=== PATIENT | male | born 1965 | race Caucasian/White ===

== ENCOUNTER 2018-06-09 11:19 | Emergency (ER) | payer SELFPAY ==
[~2018-06-09] VITALS: Ht 172.7 cm; Wt 85.5 kg
[2018-06-09 11:22] VITALS: TEMP 98.5
[2018-06-09 11:57] LABS: BASO # 0.1 (0.0-0.2); BASO % 0.8 % (0.0-2.0); EOS # 0.1 (0.0-0.7); GRAN # 7.4 (1.4-6.5); GRAN % 63.5 % (42.2-75.2); HEMATOCRIT 46.4 % (42.0-52.0); LYMPH # 3.2 (1.2-3.4); LYMPH % 27.1 % (20.0-51.0); MEAN CELL VOLUME 97 fl (80.0-100.0); MEAN CORPUSCULAR HEMOGLOBIN 34 pg (27.0-31.0); MEAN CORPUSCULAR HGB CONC 35 g/dl (33.0-37.0); MEAN PLATELET VOLUME 9.5 fl (7.4-10.4); MONO # 0.9 (0.1-0.6); MONO % 7.3 % (1.7-9.3); PLATELET COUNT 254 K/mm3 (130-400); RED BLOOD COUNT 4.77 M/mm3 (4.20-5.60); REDCELL DISTRIBUTION WIDTH-CV 13.3 % (11.5-14.5)
[2018-06-09 12:14] LABS: ALANINE AMINOTRANSFERASE 34 U/L (21-72); ALBUMIN 4.1 gm/dL (3.5-5.0); ALKALINE PHOSPHATASE 113 U/L (50-136); ANION GAP 13 mmol/L (7-16); AST,SGOT 31 U/L (15-37); BILIRUBIN,TOTAL 0.6 mg/dL (0.0-1.0); BLOOD UREA NITROGEN 15 mg/dL (9-20); CALCIUM 9.2 mg/dL (8.4-10.2); CARBON DIOXIDE 21 mmol/L (22-30); CHLORIDE 105 mmol/L (98-107); CREATININE, serum 0.92 mg/dL (0.66-1.25); GLUCOSE 106 mg/dL (74-106); POTASSIUM 3.9 mmol/L (3.4-5.0); SODIUM 139 mmol/L (137-145); TOTAL PROTEIN 7.3 gm/dL (6.4-8.2)
[2018-06-09 12:26] LABS: TROPONIN-I < 0.012 ng/mL (0.000-0.034)
[2018-06-09 13:03] LABS: COLLECTION METHOD CLEAN CATCH
[2018-06-09 13:12] LABS: MUCOUS Present /lpf; PH 5 (5-8); SQUAMOUS EPITHELIAL 0-2 /hpf; URINE APPEARANCE Clear; URINE BACTERIA None Seen /hpf; URINE BILIRUBIN Negative (NEGATIVE); URINE BLOOD Negative (NEGATIVE); URINE COLOR Yellow; URINE GLUCOSE Negative (NEGATIVE); URINE KETONE Negative (NEGATIVE); URINE LEUKOCYTE ESTERASE Negative (NEGATIVE); URINE NITRATE Negative (NEGATIVE); URINE PROTEIN(semi-quant) Negative (NEGATIVE); URINE RBC 0-2 /hpf; URINE UROBILINOGEN Negative (NEGATIVE)
[2018-06-09] MEDS ORDERED: PRINIVIL10 MG PO (13:15)
[2018-06-09 13:20] VITALS: BP 130/96; PULSE 76
== END 2018-06-09 13:29 | disposition home or self-care (01) ==
LOC: COL.ER 11:19
PROVIDERS: Nurse Practitioner
DX: I10 Essential (primary) hypertension (principal); Z91.14 Patient's other noncompliance with medication regimen; Z98.890 Other specified postprocedural states

== ENCOUNTER → 2019-04-07 | Outpatient (CLI) | payer BC ==
[~2019-04-07] MED LIST: PRINIVIL10 MG PO
[2019-04-07 11:33] LABS: BASO # 0.1 (0.0-0.2); BASO % 1.1 % (0.0-2.0); EOS # 0.3 (0.0-0.7); EOS % 2.2 % (0-4.0); GRAN # 6.7 (1.4-6.5); HEMATOCRIT 49.1 % (42.0-52.0); LYMPH # 3.5 (1.2-3.4); LYMPH % 30.5 % (20.0-51.0); MEAN CELL VOLUME 98 fl (80.0-100.0); MEAN CORPUSCULAR HEMOGLOBIN 34 pg (27.0-31.0); MEAN CORPUSCULAR HGB CONC 35 g/dl (33.0-37.0); MEAN PLATELET VOLUME 8.9 fl (7.4-10.4); MONO # 0.8 (0.1-0.6); MONO % 6.8 % (1.7-9.3); PLATELET COUNT 229 K/mm3 (130-400); RED BLOOD COUNT 5.03 M/mm3 (4.20-5.60); REDCELL DISTRIBUTION WIDTH-CV 12.8 % (11.5-14.5)
[2019-04-07 11:44] LABS: CALCIUM 9.5 mg/dL (8.4-10.2); CREATININE, serum 0.8 (0.66-1.25); POTASSIUM 4.6 mmol/L (3.4-5.0)
[2019-04-07 13:22] LABS: TSH w REFLEX 2.55 uIU/mL (0.465-4.680)
== END ==
LOC: COL.RAD 10:37
PROVIDERS: Family Medicine
DX: M19.012 Primary osteoarthritis, left shoulder (principal); I10 Essential (primary) hypertension; R53.83 Other fatigue

== ENCOUNTER 2019-04-13 09:49 | Emergency (ER) | payer BC ==
[~2019-04-13] VITALS: Ht 172.7 cm; Wt 87.3 kg
[2019-04-13] MEDS ORDERED: LASIX 20MG TABL20 MG (10:02)
[2019-04-13 10:12] LABS: BASO # 0.1 (0.0-0.2); BASO % 0.7 % (0.0-2.0); EOS # 0.2 (0.0-0.7); EOS % 1.2 % (0-4.0); GRAN % 63.3 % (42.2-75.2); HEMATOCRIT 49.3 % (42.0-52.0); HEMOGLOBIN 17.1 g/dl (13.5-18.0); LYMPH # 3.2 (1.2-3.4); LYMPH % 25.3 % (20.0-51.0); MEAN CELL VOLUME 98 fl (80.0-100.0); MEAN CORPUSCULAR HEMOGLOBIN 34 pg (27.0-31.0); MEAN CORPUSCULAR HGB CONC 35 g/dl (33.0-37.0); MEAN PLATELET VOLUME 8.8 fl (7.4-10.4); MONO # 1.1 (0.1-0.6); MONO % 8.6 % (1.7-9.3); PLATELET COUNT 258 K/mm3 (130-400); RED BLOOD COUNT 5.05 M/mm3 (4.20-5.60); REDCELL DISTRIBUTION WIDTH-CV 12.7 % (11.5-14.5)
[2019-04-13 10:21] LABS: ALANINE AMINOTRANSFERASE 16 U/L (21-72); ALBUMIN 4.6 gm/dL (3.5-5.0); ALKALINE PHOSPHATASE 106 U/L (50-136); ANION GAP 15 mmol/L (7-16); AST,SGOT 34 U/L (15-37); BILIRUBIN,TOTAL 0.5 mg/dL (0.0-1.0); BLOOD UREA NITROGEN 22 mg/dL (9-20); CALCIUM 9.8 mg/dL (8.4-10.2); CARBON DIOXIDE 22 mmol/L (22-30); CHLORIDE 103 mmol/L (98-107); CREATININE, serum 0.98 (0.66-1.25); GLUCOSE 105 mg/dL (74-106); LIPASE 203 U/L (23-300); POTASSIUM 5.2 mmol/L (3.4-5.0); SODIUM 140 mmol/L (137-145); TOTAL PROTEIN 7.9 gm/dL (6.4-8.2)
[2019-04-13 10:34] LABS: TROPONIN-I < 0.012 ng/mL (0.000-0.035)
[2019-04-13 14:16] VITALS: BP 130/74; PULSE 70; TEMP 98.4
== END 2019-04-13 14:25 | disposition home or self-care (01) ==
LOC: COL.ER 09:49
PROVIDERS: Nurse Practitioner Primary Care
DX: R07.9 Chest pain, unspecified (principal); I10 Essential (primary) hypertension; F17.210 Nicotine dependence, cigarettes, uncomplicated; Z90.49 Acquired absence of other specified parts of digestive tract
CPT/HCPCS: J7030

== ENCOUNTER → 2019-05-26 | Emergency (ER) | payer BC ==
[~2019-05-26] VITALS: Ht 188 cm; Wt 104.5 kg
[~2019-05-26] MED LIST changes: +LASIX 20MG TABL20 MG
[2019-05-26 19:05] VITALS: TEMP 97.5
[2019-05-26 19:16] LABS: ARTERIAL BLD GAS O2 SATURATION 99.1 % (92-100); ARTERIAL BLD GAS TCO2 CT 15.5; ARTERIAL BLOOD GAS BASE EXCESS -9.2 (-2-2); ARTERIAL BLOOD GAS HCO3 14.7 meq/L (22-26); ARTERIAL BLOOD GAS PCO2 27.5 mmHg (35-45); ARTERIAL BLOOD GAS PO2 412.4 mmHg (80-100); ARTERIAL BLOOD GAS pH 7.35 (7.35-7.45)
[2019-05-26 19:20] LABS: BASO # 0.1 (0.0-0.2); BASO % 0.9 % (0.0-2.0); EOS # 0.2 (0.0-0.7); EOS % 1.6 % (0-4.0); GRAN # 8.1 (1.4-6.5); GRAN % 57.1 % (42.2-75.2); HEMATOCRIT 45.3 % (42.0-52.0); HEMOGLOBIN 15.5 g/dl (13.5-18.0); LYMPH # 4.7 (1.2-3.4); MEAN CELL VOLUME 99 fl (80.0-100.0); MEAN CORPUSCULAR HEMOGLOBIN 34 pg (27.0-31.0); MEAN CORPUSCULAR HGB CONC 34 g/dl (33.0-37.0); MEAN PLATELET VOLUME 9.2 fl (7.4-10.4); MONO # 0.9 (0.1-0.6); MONO % 6.5 % (1.7-9.3); PLATELET COUNT 254 K/mm3 (130-400)
[2019-05-26 19:29] LABS: INR 0.9 (0.8-3.0); PROTHROMBIN TIME 10.5 SECONDS (9.7-12.8)
[2019-05-26 19:31] LABS: ALANINE AMINOTRANSFERASE 43 U/L (21-72); ALBUMIN 4.5 gm/dL (3.5-5.0); ALKALINE PHOSPHATASE 105 U/L (50-136); ANION GAP 19 mmol/L (7-16); AST,SGOT 65 U/L (15-37); BILIRUBIN,TOTAL 0.8 mg/dL (0.0-1.0); BLOOD UREA NITROGEN 22 mg/dL (9-20); CALCIUM 9.4 mg/dL (8.4-10.2); CARBON DIOXIDE 15 mmol/L (22-30); CHLORIDE 103 mmol/L (98-107); CREATININE, serum 1.65 (0.66-1.25); GLUCOSE 318 mg/dL (74-106); POTASSIUM 3.4 mmol/L (3.4-5.0); SODIUM 137 mmol/L (137-145); TOTAL PROTEIN 7.4 gm/dL (6.4-8.2)
[2019-05-26 19:44] LABS: TROPONIN-I < 0.012 ng/mL (0.000-0.035)
--- NOTE | 2019-05-26 19:53 | NUR ---
Received a call from ER there was a code red and the family requested a chapalin. I arrived and the family was getting ready to leave for [place] to meet the patient who was being moved to [place]. I prayed with the and family and provided spiritual care.
[2019-05-26 20:10] VITALS: BP 212/165; PULSE 144
[2019-05-26 20:25] LABS: COLLECTION METHOD CLEAN CATCH
[2019-05-26 20:42] LABS: HYALINE CAST >12 /lpf; MUCOUS Present /lpf; PH 5 (5-8); URINE APPEARANCE Cloudy; URINE BACTERIA Rare /hpf; URINE BILIRUBIN Negative (NEGATIVE); URINE BLOOD 2+ (NEGATIVE); URINE COLOR Amber; URINE GLUCOSE 3+ (NEGATIVE); URINE KETONE Trace (NEGATIVE); URINE LEUKOCYTE ESTERASE Negative (NEGATIVE); URINE NITRATE Negative (NEGATIVE); URINE PROTEIN(semi-quant) 2+ (NEGATIVE); URINE RBC 20-50 /hpf; URINE UROBILINOGEN Negative (NEGATIVE)
== END ==
LOC: COL.ER 19:01
PROVIDERS: Emergency Medicine
DX: I46.9 Cardiac arrest, cause unspecified (principal); I21.4 Non-ST elevation (NSTEMI) myocardial infarction
CPT/HCPCS: J0282; J1644; J2704; J7060

== ENCOUNTER 2019-07-28 08:18 | Emergency (ER) | payer BC ==
[~2019-07-28] VITALS: Ht 172.7 cm; Wt 85.5 kg
[2019-07-28 09:09] LABS: BASO # 0.1 (0.0-0.2); BASO % 1.4 % (0.0-2.0); EOS # 0.2 (0.0-0.7); EOS % 2.6 % (0-4.0); GRAN # 4.2 (1.4-6.5); GRAN % 53.1 % (42.2-75.2); HEMATOCRIT 42.8 % (42.0-52.0); HEMOGLOBIN 14.5 g/dl (13.5-18.0); LYMPH # 2.9 (1.2-3.4); LYMPH % 35.9 % (20.0-51.0); MEAN CELL VOLUME 99 fl (80.0-100.0); MEAN CORPUSCULAR HEMOGLOBIN 34 pg (27.0-31.0); MEAN CORPUSCULAR HGB CONC 34 g/dl (33.0-37.0); MEAN PLATELET VOLUME 9.3 fl (7.4-10.4); MONO # 0.5 (0.1-0.6); MONO % 6.4 % (1.7-9.3); PLATELET COUNT 279 K/mm3 (130-400); RED BLOOD COUNT 4.32 M/mm3 (4.20-5.60); REDCELL DISTRIBUTION WIDTH-CV 15.2 % (11.5-14.5)
[2019-07-28 09:24] LABS: ALANINE AMINOTRANSFERASE 31 U/L (21-72); ALBUMIN 4.7 gm/dL (3.5-5.0); ALKALINE PHOSPHATASE 107 U/L (50-136); ANION GAP 11 mmol/L (7-16); AST,SGOT 38 U/L (15-37); BILIRUBIN,TOTAL 0.5 mg/dL (0.0-1.0); BLOOD UREA NITROGEN 17 mg/dL (9-20); CALCIUM 9.6 mg/dL (8.4-10.2); CARBON DIOXIDE 22 mmol/L (22-30); CHLORIDE 107 mmol/L (98-107); CREATININE, serum 0.68 (0.66-1.25); GLUCOSE 108 mg/dL (74-106); LIPASE 99 U/L (23-300); POTASSIUM 4.1 mmol/L (3.4-5.0); SODIUM 140 mmol/L (137-145)
[2019-07-28 09:30] LABS: ALCOHOL(ethanol),MEDICAL < 10 mg/dL; C-REACTIVE PROTEIN < 0.5 mg/dL (0.0-0.9)
[2019-07-28 09:41] LABS: TROPONIN-I < 0.012 ng/mL (0.000-0.035)
[2019-07-28] MEDS ORDERED: NEXIUM 20MG20 MG PO (10:51)
[2019-07-28] MEDS ORDERED: PHENERGAN 25 TA25 MG PO (10:51)
[2019-07-28 10:59] LABS: COLLECTION METHOD CLEAN CATCH
[2019-07-28 11:06] LABS: PH 7 (5-8); SQUAMOUS EPITHELIAL None Seen /hpf; URINE APPEARANCE Clear; URINE BACTERIA None Seen /hpf; URINE BILIRUBIN Negative (NEGATIVE); URINE BLOOD Negative (NEGATIVE); URINE COLOR Yellow; URINE GLUCOSE Negative (NEGATIVE); URINE KETONE Negative (NEGATIVE); URINE LEUKOCYTE ESTERASE Negative (NEGATIVE); URINE NITRATE Negative (NEGATIVE); URINE PROTEIN(semi-quant) Negative (NEGATIVE); URINE RBC 0-2 /hpf; URINE UROBILINOGEN Negative (NEGATIVE)
[2019-07-28 11:15] VITALS: BP 161/94; PULSE 96; TEMP 98
== END 2019-07-28 11:15 | disposition home or self-care (01) ==
LOC: COL.ER 08:18
PROVIDERS: Emergency Medicine
DX: R11.10 Vomiting, unspecified (principal); I25.10 Atherosclerotic heart disease of native coronary artery without angina pectoris
CPT/HCPCS: C9113; J2405; J7030

== ENCOUNTER 2019-09-02 15:26 | Outpatient (RCR) | payer BC ==
[~2019-09-02 15:26] MED LIST changes: +NEXIUM 20MG20 MG PO; +PHENERGAN 25 TA25 MG PO
== END 2019-09-04 12:22 | disposition home or self-care (01) ==
LOC: COL.CR 15:26
DX: I21.21 ST elevation (STEMI) myocardial infarction involving left circumflex coronary artery (principal)

== ENCOUNTER → 2019-09-28 | Outpatient (CLI) | payer BC ==
[2019-09-28 11:31] LABS: COLLECTION METHOD CLEAN CATCH
[2019-09-28 11:40] LABS: BASO # 0.1 (0.0-0.2); BASO % 0.7 % (0.0-2.0); EOS # 0.4 (0.0-0.7); EOS % 3.4 % (0-4.0); GRAN # 5.9 (1.4-6.5); GRAN % 54.7 % (42.2-75.2); HEMATOCRIT 45.9 % (42.0-52.0); HEMOGLOBIN 15.1 g/dl (13.5-18.0); LYMPH # 3.7 (1.2-3.4); LYMPH % 33.7 % (20.0-51.0); MEAN CELL VOLUME 100 fl (80.0-100.0); MEAN CORPUSCULAR HEMOGLOBIN 33 pg (27.0-31.0); MEAN CORPUSCULAR HGB CONC 33 g/dl (33.0-37.0); MEAN PLATELET VOLUME 8.9 fl (7.4-10.4); MONO # 0.8 (0.1-0.6); PLATELET COUNT 289 K/mm3 (130-400); RED BLOOD COUNT 4.57 M/mm3 (4.20-5.60); REDCELL DISTRIBUTION WIDTH-CV 13.2 % (11.5-14.5)
[2019-09-28 11:47] LABS: INR 1.1 (0.8-3.0); PROTHROMBIN TIME 13.2 SECONDS (9.7-12.8)
[2019-09-28 11:52] LABS: PH 6 (5-8); SQUAMOUS EPITHELIAL 0-2 /hpf; URINE APPEARANCE Clear; URINE BACTERIA None Seen /hpf; URINE BILIRUBIN Negative (NEGATIVE); URINE BLOOD Negative (NEGATIVE); URINE COLOR Yellow; URINE GLUCOSE Negative (NEGATIVE); URINE KETONE Negative (NEGATIVE); URINE LEUKOCYTE ESTERASE Negative (NEGATIVE); URINE NITRATE Negative (NEGATIVE); URINE PROTEIN(semi-quant) Negative (NEGATIVE); URINE RBC None Seen /hpf; URINE UROBILINOGEN Negative (NEGATIVE); URINE WBC 0-2 /hpf
[2019-09-28 12:12] LABS: ALBUMIN 4.4 gm/dL (3.5-5.0); BILIRUBIN,TOTAL 0.2 mg/dL (0.0-1.0); CALCIUM 9.3 mg/dL (8.4-10.2); CREATININE, serum 0.84 (0.66-1.25); POTASSIUM 4.7 mmol/L (3.4-5.0); TOTAL PROTEIN 7.7 gm/dL (6.4-8.2)
== END ==
LOC: COL.RAD 10:48 → COL.LAB 10:48
PROVIDERS: Family Medicine
DX: Z01.812 Encounter for preprocedural laboratory examination (principal); M75.100 Unspecified rotator cuff tear or rupture of unspecified shoulder, not specified as traumatic; I26.99 Other pulmonary embolism without acute cor pulmonale

== ENCOUNTER 2019-10-02 10:05 | Outpatient (RCR) | payer BC, OTHER | END 2019-11-26 07:40 | disposition home or self-care (01) | LOC: WSC 10:05 | DX: Z01.812 Encounter for preprocedural laboratory examination (principal); Z96.612 Presence of left artificial shoulder joint ==

== ENCOUNTER → 2019-10-08 | Outpatient (CLI) | payer BC | LOC: COL.RAD 09:53 | DX: I26.99 Other pulmonary embolism without acute cor pulmonale (principal); I82.409 Acute embolism and thrombosis of unspecified deep veins of unspecified lower extremity; J98.11 Atelectasis | CPT/HCPCS: Q9967 ==

== ENCOUNTER → 2019-10-16 | Outpatient (CLI) | payer BC ==
[2019-10-16 15:06] LABS: BASO # 0.1 (0.0-0.2); BASO % 1.1 % (0.0-2.0); EOS # 0.4 (0.0-0.7); EOS % 3.5 % (0-4.0); GRAN # 5.6 (1.4-6.5); GRAN % 53.5 % (42.2-75.2); HEMATOCRIT 49.8 % (42.0-52.0); HEMOGLOBIN 16.8 g/dl (13.5-18.0); LYMPH # 3.7 (1.2-3.4); LYMPH % 35.2 % (20.0-51.0); MEAN CELL VOLUME 98 fl (80.0-100.0); MEAN CORPUSCULAR HEMOGLOBIN 33 pg (27.0-31.0); MEAN CORPUSCULAR HGB CONC 34 g/dl (33.0-37.0); MEAN PLATELET VOLUME 8.9 fl (7.4-10.4); MONO # 0.7 (0.1-0.6); MONO % 6.3 % (1.7-9.3); PLATELET COUNT 255 K/mm3 (130-400); RED BLOOD COUNT 5.06 M/mm3 (4.20-5.60)
[2019-10-16 15:21] LABS: ALANINE AMINOTRANSFERASE 30 U/L (21-72); ALBUMIN 4.6 gm/dL (3.5-5.0); ALKALINE PHOSPHATASE 95 U/L (50-136); ANION GAP 9 mmol/L (7-16); AST,SGOT 28 U/L (15-37); BILIRUBIN,TOTAL 0.5 mg/dL (0.0-1.0); BLOOD UREA NITROGEN 17 mg/dL (9-20); CALCIUM 9.4 mg/dL (8.4-10.2); CARBON DIOXIDE 27 mmol/L (22-30); CHLORIDE 105 mmol/L (98-107); CREATININE, serum 0.89 (0.66-1.25); GLUCOSE 126 mg/dL (74-106); POTASSIUM 4.1 mmol/L (3.4-5.0); SODIUM 142 mmol/L (137-145); TOTAL PROTEIN 7.8 gm/dL (6.4-8.2)
[2019-10-16 15:22] LABS: C-REACTIVE PROTEIN < 0.5 mg/dL (0.0-0.9)
[2019-10-16 15:27] LABS: ERYTHROCYTE SEDIMENTATION RATE 4 mm/hr (0-30)
[2019-10-16 23:18] LABS: RHEUMATOID FACTOR-SCREEN <15 IU/mL (0-29)
[2019-10-19 16:34] LABS: C-ANCA 89 U/mL (0-99)
[2019-10-20 16:43] LABS: ANGIOTENSIN CONVERTING ENZYME <5 U/L (16 - 85)
== END ==
LOC: COL.LAB 14:24
PROVIDERS: Internal Medicine Pulmonary Disease
DX: I26.99 Other pulmonary embolism without acute cor pulmonale (principal)

== ENCOUNTER → 2019-12-07 | Outpatient (CLI) | payer BC | LOC: COL.LAB 12:22 → COL.PUL 13:00 | DX: I26.99 Other pulmonary embolism without acute cor pulmonale (principal) | CPT/HCPCS: J7674 ==

== ENCOUNTER → 2020-02-05 | Outpatient (CLI) | payer SELFPAY ==
[2020-02-05 15:00] LABS: COLLECTION METHOD CLEAN CATCH
[2020-02-05 15:06] LABS: BASO # 0.1 (0.0-0.2); BASO % 1.2 % (0.0-2.0); EOS # 0.5 (0.0-0.7); EOS % 5.4 % (0-4.0); GRAN # 3.6 (1.4-6.5); GRAN % 43.9 % (42.2-75.2); HEMATOCRIT 47.9 % (42.0-52.0); HEMOGLOBIN 15.9 g/dl (13.5-18.0); LYMPH # 3.3 (1.2-3.4); LYMPH % 39.8 % (20.0-51.0); MEAN CELL VOLUME 99 fl (80.0-100.0); MEAN CORPUSCULAR HEMOGLOBIN 33 pg (27.0-31.0); MEAN CORPUSCULAR HGB CONC 33 g/dl (33.0-37.0); MONO # 0.8 (0.1-0.6); MONO % 9.3 % (1.7-9.3); PLATELET COUNT 271 K/mm3 (130-400); RED BLOOD COUNT 4.82 M/mm3 (4.20-5.60); REDCELL DISTRIBUTION WIDTH-CV 13.8 % (11.5-14.5)
[2020-02-05 15:23] LABS: MUCOUS Present /lpf; PH 5 (5-8); SQUAMOUS EPITHELIAL None Seen /hpf; URINE APPEARANCE Clear; URINE BACTERIA None Seen /hpf; URINE BILIRUBIN Negative (NEGATIVE); URINE BLOOD 1+ (NEGATIVE); URINE COLOR Yellow; URINE GLUCOSE Negative (NEGATIVE); URINE KETONE Negative (NEGATIVE); URINE LEUKOCYTE ESTERASE Negative (NEGATIVE); URINE NITRATE Negative (NEGATIVE); URINE PROTEIN(semi-quant) Negative (NEGATIVE); URINE RBC 0-2 /hpf; URINE UROBILINOGEN Negative (NEGATIVE)
[2020-02-05 15:27] LABS: INR 1.3 (0.8-3.0)
[2020-02-05 17:03] LABS: ALBUMIN 4.4 gm/dL (3.5-5.0); BILIRUBIN,TOTAL 0.7 mg/dL (0.0-1.0); CALCIUM 9.4 mg/dL (8.4-10.2); CREATININE, serum 0.89 (0.66-1.25); POTASSIUM 4.4 mmol/L (3.4-5.0); TOTAL PROTEIN 7.6 gm/dL (6.4-8.2)
== END ==
LOC: COL.LAB 14:05
PROVIDERS: Orthopaedic Surgery
DX: Z01.812 Encounter for preprocedural laboratory examination (principal); M75.102 Unspecified rotator cuff tear or rupture of left shoulder, not specified as traumatic

== ENCOUNTER 2020-02-12 08:21 | Day surgery (SDC) | payer SELFPAY ==
[~2020-02-12] VITALS: Ht 172.7 cm; Wt 94.9 kg
[2020-02-12 08:38] VITALS: BP 149/86; PULSE 62; TEMP 98.3
[2020-02-12] MEDS ORDERED: NEXIUM 20MG20 MG PO (08:39)
[2020-02-12] MEDS ORDERED: ZESTRIL 10MG10 MG PO (08:39)
[2020-02-12] MEDS ORDERED: PHENERGAN 25 TA25 MG PO (08:40)
[2020-02-12] MEDS ORDERED: NORVASC 10MG10 MG PO (08:41)
[2020-02-12] MEDS ORDERED: PROZAC 20MG20 MG PO (08:41)
[2020-02-12] MEDS ORDERED: ELIQUIS 5MG PO (08:41)
[2020-02-12] MEDS ORDERED: ULTRAM 50MG TAB50 MG PO (08:42)
[2020-02-12] MEDS ORDERED: NITROSTAT0.4 MG/TAB SL (08:43)
[2020-02-12] MEDS ORDERED: LOVENOX 100100 MG/ML SQ (08:44)
[2020-02-12] MEDS ORDERED: LOPRESSOR 225 MG/TAB PO (08:44)
[2020-02-12] MEDS ORDERED: NORCO 325 MG-7.1 TAB PO (12:23)
[2020-02-12] MEDS ORDERED: ROXICODONE 55 MG/TAB PO (12:23)
[2020-02-12 13:00] VITALS: BP 125/73; PULSE 67; TEMP 97.6
--- NOTE | 2020-02-12 13:00 | NUR ---
The patient arrived back to [place] [facility] from the recovery room at this time. The patient appears alert and oriented and denies any pain or nausea at this time. Post operative vital signs were started at this time. The patient has a sling in place to his left arm with ice in place to the incision site. The patient's foam tape dressing appears clean, dry and intact. The patient received an intrascaline block prior to surgery and it appears to be working well. The patient agrees to try some ice water at this time. Will continue to monitor the patient.
[2020-02-12 13:15] VITALS: BP 131/76; PULSE 67
--- NOTE | 2020-02-12 13:15 | NUR ---
The patient appears to be tolerating the water well. The patient continues to deny pain or nausea at this time. The patient's vital signs appear stable. Will continue to monitor the patient.
[2020-02-12 13:30] VITALS: BP 128/74; PULSE 71
--- NOTE | 2020-02-12 13:30 | NUR ---
The patient agrees to try a muffin and coffee at this time. The patient continues to deny any pain at this time. Will continue to monitor the patient.
[2020-02-12 13:45] VITALS: BP 117/75; PULSE 68
--- NOTE | 2020-02-12 13:45 | NUR ---
The patient has finished his muffin and coffee and appeared to tolerate both well. The patient denies needing to void at this time. He is going to get up and try to void with his next vital sign check.
[2020-02-12 14:15] VITALS: BP 120/80; PULSE 65
--- NOTE | 2020-02-12 14:15 | NUR ---
The patient ambulated to the bathroom with the stand by assistance of one nurse and appeared to tolerate the activity well. The patient voided without difficulty and voices a desire to be discharged home.
--- NOTE | 2020-02-12 14:30 | NUR ---
The nurse assisted the patietn to get dressed and he appeared to tolerate the activity well. The patient's sling was put back in place and he states that it is in a "comfortable position". Discharge instructions were reviewed with the patient and his , over the phone, at this time. They both verbalized understanding. The patient's IV to his right hand was removed and a pressure dressing was applied to the site. Will continue to monitor the patient.
--- NOTE | 2020-02-12 14:40 | NUR ---
The patient was escorted out via wheelchair to a private vehicle by DANILO Ferrer. The patient's belongings and discharge paperwork were sent with him. The patient's is present to drive him home.
== END 2020-02-12 14:40 | disposition home or self-care (01) ==
LOC: SDCO 08:21
DX: M75.122 Complete rotator cuff tear or rupture of left shoulder, not specified as traumatic (principal); M19.012 Primary osteoarthritis, left shoulder; S43.432A Superior glenoid labrum lesion of left shoulder, initial encounter; Z79.82 Long term (current) use of aspirin; Z79.01 Long term (current) use of anticoagulants; Z86.711 Personal history of pulmonary embolism; F17.210 Nicotine dependence, cigarettes, uncomplicated; I10 Essential (primary) hypertension; Z86.718 Personal history of other venous thrombosis and embolism; G89.18 Other acute postprocedural pain
CPT/HCPCS: A4619; C1713; J0690; J1100; J1885; J2250; J2405; J2704; J3010; J7120

== ENCOUNTER 2020-05-16 11:00 | Outpatient (RCR) | payer OTHER ==
[~2020-05-16 11:00] MED LIST changes: +CIPRO 500MG TA500 MG PO; +ELIQUIS 5MG PO; +LOPRESSOR 225 MG/TAB PO; +LOVENOX 100100 MG/ML SQ; +NITROSTAT0.4 MG/TAB SL; +NORCO 325 MG-7.1 TAB PO; +NORVASC 10MG10 MG PO; +PROZAC 20MG20 MG PO; +ROXICODONE 55 MG/TAB PO; +ULTRAM 50MG TAB50 MG PO; +ZESTRIL 10MG10 MG PO
== END 2020-05-17 ==
LOC: WSC
DX: Z98.890 Other specified postprocedural states (principal); Z96.612 Presence of left artificial shoulder joint
CPT/HCPCS: G0283-GP

== ENCOUNTER 2020-05-27 13:07 | Outpatient (RCR) | payer OTHER | END 2020-06-17 11:21 | disposition home or self-care (01) | LOC: WSC 13:07 | DX: Z98.890 Other specified postprocedural states (principal) ==